=== PATIENT | male | born 1975 | race Caucasian/White ===

== ENCOUNTER 2020-09-02 16:05 | Inpatient (IN) | payer BC, OTHER ==
[~2020-09-02 16:05] MED LIST: Iopamidol 370 76% 100 ML VIAL ONE
--- NOTE | 2020-09-02 16:35 | RAD ---
Chest AP view INDICATION: History of Covid positive diagnosis and shortness of breath COMPARISON: May 26, 2015 FINDINGS: Lungs: There are interstitial and airspace opacities affecting both lungs within the mid to lower as pects suspicious for pneumonia. Cardiac silhouette: The cardiomediastinal silhouette appears within normal limits. Pulmonary vasculature: Normal Pleural spaces: No pleural effusion or pneumothorax is demonstrated. Upper abdomen: No abnormality seen. Osseous structures: No acute osseous abnormality. Additional findings: None. IMPRESSION: Bilateral pneumonia.
[2020-09-02 16:37] LABS: #Eosinphils 0.1 thou/uL (0.0-0.7); #Lymphocytes 0.8 thou/uL (1.20-3.40); #Monocytes 0.2 thou/uL (0.11-0.59); #Neutrophils 6.1 thou/uL (1.40-6.50); %Basophils 0.3 % (0.0-1.0); %Monocytes 2.9 % (0.0-10.0); %Neutrophils 84.8 % (42.0-75.0); Mean Corpuscular HGB CONC 33.4 g/dL (32.0-36.0); Mean Corpuscular Hemoglobin 31.2 pg (27.0-31.0); Mean Corpuscular Volume 93.5 fL (78.0-98.0); Mean Platelet Volume 7.7 fL (7.4-10.4); Platelet Count 230 thou/uL (130-400); RBC Distribution Width 12.3 % (11.5-14.5); Red Blood Cell (RBC) Count 4.48 mill/uL (4.70-6.10); White Blood Cell (WBC) Count 7.2 thou/uL (4.8-10.8)
[2020-09-02 17:05] LABS: Carbon Dioxide 22 mmol/L (22-29)
[2020-09-02 17:25] LABS: ALT (SGPT) 24 U/L (8-55); AST (SGOT) 91 U/L (5-34); Alkaline Phosphatase 214 U/L (40-110); Anion Gap 16 mmol/L (10-20); BUN (Urea Nitrogen) Less than 20 mg/dL (8.9-20.6); Calc. Creatinine Clearance 0 mL/min (70-130); Globulin 4.7 g/dL (2.4-3.5); Glucose 250 mg/dL (70-105)
[2020-09-02 17:29] LABS: Albumin 3.2 g/dL (3.5-5.0)
[2020-09-02 17:30] LABS: Chloride 98 mmol/L (98-107); Potassium 5.9 mmol/L (3.5-5.1); Sodium 132 mmol/L (136-145)
[2020-09-02 17:31] LABS: Calcium 8.3 mg/dL (7.8-10.44)
[2020-09-02 17:32] LABS: Protein, Total 7.5 g/dL (6.0-8.3)
[2020-09-02 17:34] LABS: Bilirubin, Total 0.3 mg/dL (0.2-1.2)
[2020-09-02] MEDS ORDERED: cefTRIAXone\\ROCEPHIN 1 GM VIAL ONE (18:04)
--- NOTE | 2020-09-02 19:20 | CT ---
CT angiogram chest: 09/02/2020 COMPARISON: None HISTORY: Shortness of breath, fever, cough, Covid positive patient TECHNIQUE: Axial CT imaging at 2.5 mm intervals from the thoracic inlet through the upper abdomen wit h IV contrast using CT angiogram protocol. Coronal and sagittal 3-D reformatted imaging obtained. FINDINGS: The imaged upper abdomen appears grossly unremarkable. No pleural, pericardial, or mediasti nal fluid. No axillary lymphadenopathy. Subcarinal lymphadenopathy noted measuring 1.6 cm short axis dimension. Mildly enlarged lymph nodes are seen within the right paratracheal region and the AP window. No pulmonary arterial filling defect is evident to suggest the presence of acute pulmonary arterial e mbolism. No pneumothorax is seen. There is extensive multifocal interstitial and ground glass opacity bilaterally with involvement of t he right upper lobe, right middle lobe, right lower lobe, left lower lobe, and left upper lobe diffusely. Review of the osseous structures demonstrates no acute findings. IMPRESSION: Extensive bilateral multi lobar interstitial and alveolar/ground glass opacity consistent with Covid pneumonia. No evidence for pulmonary arterial embolism.
[2020-09-02] MEDS ORDERED: Azithromycin 500 MG in Sodium Chloride 0.9% 250 ML 250 ML IVPB ONE (19:30)
[2020-09-02] MEDS ORDERED: Acetaminophen 325 MG TAB PO PRN (20:01)
[2020-09-02] MEDS ORDERED: HumaLOG 300 UNITS/3 ML VIAL SC PRN (20:01)
[2020-09-02] MEDS ORDERED: Dextrose 5% in Water 1,000 ML IV PRN (20:01)
[2020-09-02] MEDS ORDERED: Dextrose 50% Abboject 50 ML SYRINGE SLOW IVP PRN (20:01)
[2020-09-02 20:55] LABS: Potassium 5.1 mmol/L (3.5-5.1)
[2020-09-03] MEDS ORDERED: Ondansetron ODT 4 MG TAB SL PRN (01:30)
[2020-09-03] MEDS ORDERED: Acetaminophen 325 MG TAB PO PRN (01:30)
[2020-09-03] MEDS ORDERED: Ondansetron PF 4 MG/2 ML Vial IVP PRN (01:30)
--- NOTE | 2020-09-03 02:15 | HP ---
REASON FOR ADMISSION: Shortness of breath. HISTORY OF PRESENT ILLNESS: This is a 45-year-old male patient, who is presenting with shortness of breath. He was diagnosed with COVID-19 approximately eight days ago. He presents today for increasing shortness of breath. Today, he was taking shower and he started coughing and he felt that he is going to faint. He did not lose consciousness, but this episode prompted him to come to the ER. Currently, he appears to be comfortable, but up on ambulation, his pulse ox dropped to 90%. PAST MEDICAL HISTORY: 1. Diabetes type 2. 2. High blood pressure. 3. Ruptured disk in neck and back. 4. Asthma. 5. High blood pressure. SOCIAL HISTORY: He does not smoke. He drinks alcohol occasionally. PAST SURGICAL HISTORY: Right shoulder, right knee surgery, left eye surgery. PAST PSYCHIATRIC HISTORY: Bipolar disorder. FAMILY HISTORY: Positive for diabetes. REVIEW OF SYSTEMS: All systems reviewed except the above mentioned, found to be negative. PHYSICAL EXAMINATION: GENERAL: Awake, alert, oriented, does not appear in distress. VITAL SIGNS: His blood pressure is 117/86, heart rate of 81, saturating 95% on 2 L nasal cannula. HEENT: Head is nontraumatic, normocephalic. Pupils are equal and reactive. Extraocular movements are intact. Nonicteric sclerae. Well injected conjunctivae. Oral mucosa normal. Nasal mucosa normal. NECK: Supple. No adenopathy. No murmur. Thyroid is not palpable. Trachea is midline. No supraclavicular adenopathy. HEART: S1 and S2, regular. No murmur. No gallops. No friction rubs. No displacement on PMI. LUNGS: Decreased air entry. Inspiratory crackles bilaterally. ABDOMEN: Bowel sounds are positive. Nontender abdomen. No hepatosplenomegaly. EXTREMITIES: No lower extremity edema. No cyanosis. NEURO: Cranial nerves 2 through 12 within normal limits. Normal motor function. Normal sensory function and reflexes. LABORATORY DATA: Blood work shows a WBC of 7.2, hemoglobin of 14, platelets of 230, neutrophil count 84.8%. Sodium 132, potassium 5.9, bicarb of 22, creatinine of 0.9, glucose of 250, albumin 3.2. Chest x-ray shows bilateral pneumonia. CT of the chest shows extensive bilateral multilobar interstitial and alveolar/ground-glass opacity consistent with COVID pneumonia. No evidence of PE. ASSESSMENT AND PLAN: This is a 45-year-old male patient, who is presenting with increased shortness of breath and hypoxia on ambulation. He was diagnosed with COVID-19 approximately eight days ago. The patient will be admitted to the COVID-19 unit and he is allergic to corticosteroids, but he did receive Solu-Medrol in the ER. I will double check with him if he can tolerate the Solu-Medrol. We can maintain him on a daily dose of that. He did receive Rocephin and azithromycin. Since mainly most likely he does have a COVID pneumonia, would cover him with azithromycin to be on a safe side. For his diabetes, he will be on insulin sliding scale. For deep vein thrombosis prophylaxis, he will be on Lovenox. I am awaiting for his med rec to be done so I could reconcile it. Job ID: [id number]
[2020-09-03 02:53] VITALS: BMI 28.7
[2020-09-03] MEDS ORDERED: traMADol HCl 50 MG TAB PO PRN (04:27)
[2020-09-03] MEDS: HumaLOG 300 UNITS/3 ML VIAL SC PRN ×3 (06:38→20:33)
[2020-09-03 06:49] LABS: Anion Gap 19 mmol/L (10-20); BUN (Urea Nitrogen) 18 mg/dL (8.9-20.6); Calc. Creatinine Clearance 115 mL/min (70-130); Calcium 8.7 mg/dL (7.8-10.44); Carbon Dioxide 22 mmol/L (22-29); Chloride 98 mmol/L (98-107); Glucose 455 mg/dL (70-105); Potassium 4.3 mmol/L (3.5-5.1); Sodium 135 mmol/L (136-145)
[2020-09-03] MEDS: metFORMIN 500 MG TAB PO SCH (09:01)
[2020-09-03] MEDS: Venlafaxine HCl XR 150 MG CAP PO SCH (09:02)
[2020-09-03] MEDS: Pregabalin 75 MG CAP PO SCH (09:02)
[2020-09-03] MEDS: Enoxaparin Sodium 40 MG/0.4 ML SYRINGE SC SCH (09:03)
[2020-09-03] MEDS ORDERED: Albuterol Sulfate 2.5 mg/3 ml Neb NEB PRN (10:23)
[2020-09-03] MEDS ORDERED: guaiFENesin 100 MG/5 ML UDCUP PO PRN (10:24)
[2020-09-03] MEDS ORDERED: Pharmacy to Dose REMDESIVIR IVPB PRN (10:26)
[2020-09-03] MEDS: Dexamethasone 6 MG in Sodium Chloride 0.9% 50 ML IVPB SCH (11:21)
[2020-09-03] MEDS ORDERED: REMDESIVIR (EUA) 200 MG in Sodium Chloride 0.9% 250 ML 210 ML IV SCH (13:00)
[2020-09-03] MEDS ORDERED: PROVENTIL INHALER 6.7 G (200 INHALATIONS) INH PRN ×2 (15:17→15:20)
--- NOTE | 2020-09-03 16:38 | PDOC.HOSPP ---
- Subjective Encounter Date: 09/03/20 Encounter Time: 12:30 Subjective: Patient up in bed denies any complaints. - Objective Vital Signs & Weight: Vital Signs (12 hours) Temp Pulse Resp BP Pulse Ox 09/03/20 12:11 97.9 F 60 20 109/76 95 09/03/20 08:00 97.8 F 57 L 18 111/74 95 Weight Weight 212 lb Result Diagrams: 09/02/20 16:27 09/03/20 06:14 Additional Labs: Accuchecks 09/03/20 09/03/20 09/03/20 12:11 05:37 02:04 POC Glucose 292 H 433 H 311 H Hospitalist ROS - Review of Systems Cardiovascular: denies: chest pain, palpitations, orthopnea, paroxysmal noc. dyspnea, edema, light headedness, other Gastrointestinal: denies: nausea, vomiting, abdominal pain, diarrhea, constipation, melena, hematochezia, other Genitourinary: denies: dysuria, frequency, incontinence, hematuria, retention, other - Medication Medications: Active Medications Generic Name Dose Route Start Last Admin Trade Name Freq PRN Reason Stop Dose Admin Enoxaparin Sodium 40 mg 09/03/20 09:00 09/03/20 09:03 Enoxaparin Sodium 40 Mg/0.4 Ml Syringe SC 40 mg 0900 KAYCEE Administration Dexamethasone 6 mg/ Sodium 50.6 mls @ 100 mls/hr 09/03/20 09:00 09/03/20 11:21 Chloride IVPB 50.6 mls DAILY KAYCEE Administration Insulin Human Lispro 0 units 09/03/20 06:45 09/03/20 06:38 Humalog 300 Units/3 Ml Vial SC 13 unit .AGGRESSIVE SLIDING PRN Administration AGGRESSIVE SLIDING SCALE Protocol Metformin HCl 2,000 mg 09/03/20 08:00 09/03/20 09:01 Metformin 500 Mg Tab PO 2,000 mg QAM-WM KAYCEE Administration Pregabalin 75 mg 09/03/20 09:00 09/03/20 09:02 Pregabalin 75 Mg Cap PO 75 mg DAILY KAYCEE Administration Venlafaxine HCl 300 mg 09/03/20 09:00 09/03/20 09:02 Venlafaxine Hcl Xr 150 Mg Cap PO 300 mg DAILY KAYCEE Administration - Exam Neck: negative: supple, symmetric, no JVD, no thyromegaly, no lymphadenopathy, no carotid bruit, JVD Heart: negative: RRR, no murmur, no gallops, no rubs, normal peripheral pulses, irregular, diminshed peripheral pulses, murmur present, II/IV, III/IV Respiratory: negative: CTAB, no wheezes, no rales, no ronchi, normal chest expansion, no tachypnea, normal percussion, rales, rhonchi, tachypneic, wheezes Gastrointestinal: negative: soft, non-tender, non-distended, normal bowel sounds, no palpable masses, no hepatomegaly, no splenomegaly, no bruit, no guarding, no rigidity, tender to palpation, distended, diminished bowl sounds, voluntary guarding Hosp A/P (1) Acute respiratory failure with hypoxia Code(s): J96.01 - ACUTE RESPIRATORY FAILURE WITH HYPOXIA Status: Acute (2) COVID-19 Code(s): U07.1 - COVID-19 Status: Acute (3) Diabetes Code(s): E11.9 - TYPE 2 DIABETES MELLITUS WITHOUT COMPLICATIONS Status: Acute (4) Obesity Code(s): E66.9 - OBESITY, UNSPECIFIED Status: Acute - Plan We will start patient on remdesivir. Continue steroids. Patient on albuterol. Patient on DVT prophylaxis
[2020-09-03] MEDS: Azithromycin 250 MG TAB PO SCH (20:16)
[2020-09-03] MEDS: Benzonatate 100 MG CAP PO PRN (20:16)
[2020-09-04] MEDS: HumaLOG 300 UNITS/3 ML VIAL SC PRN ×4 (06:06→20:23)
[2020-09-04 07:13] LABS: ALT (SGPT) 20 U/L (8-55); AST (SGOT) 20 U/L (5-34); Albumin 3.2 g/dL (3.5-5.0); Alkaline Phosphatase 57 U/L (40-110); Bilirubin, Direct 0.1 mg/dL (0.1-0.3); Bilirubin, Total 0.3 mg/dL (0.2-1.2); Protein, Total 5.9 g/dL (6.0-8.3)
[2020-09-04] MEDS: Pregabalin 75 MG CAP PO SCH (08:37)
[2020-09-04] MEDS: metFORMIN 500 MG TAB PO SCH (08:37)
[2020-09-04] MEDS: Venlafaxine HCl XR 150 MG CAP PO SCH (08:37)
[2020-09-04] MEDS: Cholecalciferol (Vitamin D3) 400 UNITS TAB PO SCH (08:38)
[2020-09-04] MEDS: Enoxaparin Sodium 40 MG/0.4 ML SYRINGE SC SCH (08:38)
[2020-09-04] MEDS: Dexamethasone 6 MG in Sodium Chloride 0.9% 50 ML IVPB SCH (08:40)
--- NOTE | 2020-09-04 12:20 | PDOC.HOSPP ---
- Subjective Encounter Date: 09/04/20 Encounter Time: 10:30 Subjective: pt up in bed no complains - Objective Vital Signs & Weight: Vital Signs (12 hours) Temp Pulse Resp BP Pulse Ox 09/04/20 08:00 97.4 F L 55 L 18 96/56 L 94 L Weight Weight 212 lb I&O: 09/03/20 09/04/20 09/05/20 06:59 06:59 06:59 Intake Total 450 Balance 450 Result Diagrams: 09/02/20 16:27 09/03/20 06:14 Additional Labs: Accuchecks 09/04/20 09/04/20 09/03/20 11:48 05:47 20:31 POC Glucose 269 H 230 H 253 H 09/03/20 09/03/20 16:41 12:11 POC Glucose 424 H 292 H Hospitalist ROS - Review of Systems Cardiovascular: denies: chest pain, palpitations, orthopnea, paroxysmal noc. dyspnea, edema, light headedness, other Gastrointestinal: denies: nausea, vomiting, abdominal pain, diarrhea, constipation, melena, hematochezia, other Genitourinary: denies: dysuria, frequency, incontinence, hematuria, retention, other - Medication Medications: Active Medications Generic Name Dose Route Start Last Admin Trade Name Freq PRN Reason Stop Dose Admin Acetaminophen 650 mg 09/02/20 20:01 09/03/20 23:11 Acetaminophen 325 Mg Tab PO 650 mg Q4H PRN Administration Headache/Fever/Mild Pain (1-3) Azithromycin 500 mg 09/03/20 20:00 09/03/20 20:16 Azithromycin 250 Mg Tab PO 500 mg 2000 KAYCEE Administration Benzonatate 100 mg 09/03/20 10:23 09/03/20 20:16 Benzonatate 100 Mg Cap PO 100 mg TIDPRN PRN Administration Cough Cholecalciferol 400 units 09/04/20 09:00 09/04/20 08:38 Cholecalciferol (Vitamin D3) 400 Units Tab PO 400 units DAILY KAYCEE Administration Enoxaparin Sodium 40 mg 09/03/20 09:00 09/04/20 08:38 Enoxaparin Sodium 40 Mg/0.4 Ml Syringe SC 40 mg 0900 KAYCEE Administration Dexamethasone 6 mg/ Sodium 50.6 mls @ 100 mls/hr 09/03/20 09:00 09/04/20 08:40 Chloride IVPB 50.6 mls DAILY KAYCEE Administration Insulin Human Lispro 0 units 09/03/20 06:45 09/04/20 06:06 Humalog 300 Units/3 Ml Vial SC 6 unit .AGGRESSIVE SLIDING PRN Administration AGGRESSIVE SLIDING SCALE Protocol Metformin HCl 2,000 mg 09/03/20 08:00 09/04/20 08:37 Metformin 500 Mg Tab PO 2,000 mg QAM-WM KAYCEE Administration Pregabalin 75 mg 09/03/20 09:00 09/04/20 08:37 Pregabalin 75 Mg Cap PO 75 mg DAILY KAYCEE Administration Tramadol HCl 50 mg 09/03/20 04:27 09/03/20 23:12 Tramadol Hcl 50 Mg Tab PO 50 mg Q6H PRN Administration Pain Venlafaxine HCl 300 mg 09/03/20 09:00 09/04/20 08:37 Venlafaxine Hcl Xr 150 Mg Cap PO 300 mg DAILY KAYCEE Administration - Exam Heart: negative: RRR, no murmur, no gallops, no rubs, normal peripheral pulses, irregular, diminshed peripheral pulses, murmur present, II/IV, III/IV Respiratory: negative: CTAB, no wheezes, no rales, no ronchi, normal chest expansion, no tachypnea, normal percussion, rales, rhonchi, tachypneic, wheezes Gastrointestinal: negative: soft, non-tender, non-distended, normal bowel sounds, no palpable masses, no hepatomegaly, no splenomegaly, no bruit, no guarding, no rigidity, tender to palpation, distended, diminished bowl sounds, voluntary guarding Hosp A/P (1) Acute respiratory failure with hypoxia Code(s): J96.01 - ACUTE RESPIRATORY FAILURE WITH HYPOXIA Status: Acute (2) COVID-19 Code(s): U07.1 - COVID-19 Status: Acute (3) Diabetes Code(s): E11.9 - TYPE 2 DIABETES MELLITUS WITHOUT COMPLICATIONS Status: Acute (4) Obesity Code(s): E66.9 - OBESITY, UNSPECIFIED Status: Acute - Plan We will start patient on remdesivir. Continue steroids. Patient on albuterol. Patient on DVT prophylaxis 09/04 pt on remdesivir day 2. will continue steroids/dvt ppx and albuterol.
[2020-09-04] MEDS ORDERED: Insulin Glargine 8 UNITS in Pre-Filled Syringe SC SCH (12:30)
--- NOTE | 2020-09-04 14:50 | EKG ---
Test Reason : Blood Pressure : / mmHG Vent. Rate : 088 BPM Atrial Rate : 088 BPM P-R Int : 112 ms QRS Dur : 098 ms QT Int : 346 ms P-R-T Axes : 001 -23 -33 degrees QTc Int : 418 ms Normal sinus rhythm Normal ECG Confirmed by JAYLIN MANJARREZ M.D. ([id number]), writer editor LAY CARDENAS ([id number]) on 09/04/2020 2:50:20 PM Referred By: Confirmed By:JAYLIN MANJARREZ M.D.
[2020-09-04] MEDS: REMDESIVIR (EUA) 100 MG in Sodium Chloride 0.9% 250 ML 230 ML IV SCH (15:23)
[2020-09-04] MEDS: Benzonatate 100 MG CAP PO PRN (20:23)
[2020-09-04] MEDS: Azithromycin 250 MG TAB PO SCH (20:23)
[2020-09-05] MEDS: HumaLOG 300 UNITS/3 ML VIAL SC PRN ×2 (05:39→20:17)
[2020-09-05 07:31] LABS: ALT (SGPT) 19 U/L (8-55); AST (SGOT) 14 U/L (5-34); Albumin 3.1 g/dL (3.5-5.0); Alkaline Phosphatase 54 U/L (40-110); Bilirubin, Direct 0.1 mg/dL (0.1-0.3); Bilirubin, Total 0.3 mg/dL (0.2-1.2); Protein, Total 5.8 g/dL (6.0-8.3)
[2020-09-05] MEDS: Dexamethasone 6 MG in Sodium Chloride 0.9% 50 ML IVPB SCH (08:02)
[2020-09-05] MEDS: Enoxaparin Sodium 40 MG/0.4 ML SYRINGE SC SCH (08:03)
[2020-09-05] MEDS: Pregabalin 75 MG CAP PO SCH (08:04)
[2020-09-05] MEDS: Venlafaxine HCl XR 150 MG CAP PO SCH (08:05)
[2020-09-05] MEDS: Insulin Glargine 8 UNITS in Pre-Filled Syringe SC SCH (08:05)
[2020-09-05] MEDS: metFORMIN 500 MG TAB PO SCH (08:05)
[2020-09-05] MEDS: Cholecalciferol (Vitamin D3) 400 UNITS TAB PO SCH (08:05)
[2020-09-05] MEDS ORDERED: HumaLOG 300 UNITS/3 ML VIAL SC SCH (10:00)
[2020-09-05] MEDS: REMDESIVIR (EUA) 100 MG in Sodium Chloride 0.9% 250 ML 230 ML IV SCH (12:34)
[2020-09-05] MEDS: HumaLOG 300 UNITS/3 ML VIAL SC SCH ×2 (12:34→17:04)
--- NOTE | 2020-09-05 15:36 | PDOC.HOSPP ---
- Subjective Encounter Date: 09/05/20 Encounter Time: 09:45 Subjective: pt up in bed no complains - Objective Vital Signs & Weight: Vital Signs (12 hours) Temp Pulse Resp BP Pulse Ox 09/05/20 08:15 98.2 F 58 L 18 114/77 95 09/05/20 08:00 95 Weight Weight 212 lb I&O: 09/04/20 09/05/20 09/06/20 06:59 06:59 06:59 Intake Total 450 450 Balance 450 450 Result Diagrams: 09/02/20 16:27 09/03/20 06:14 Additional Labs: Accuchecks 09/05/20 09/05/20 09/04/20 11:37 05:25 20:14 POC Glucose 275 H 264 H 245 H 09/04/20 16:04 POC Glucose 265 H Hospitalist ROS - Review of Systems Respiratory: denies: cough, dry, shortness of breath, hemoptysis, SOB with excertion, pleuritic pain, sputum, wheezing, other Cardiovascular: denies: chest pain, palpitations, orthopnea, paroxysmal noc. dyspnea, edema, light headedness, other Gastrointestinal: denies: nausea, vomiting, abdominal pain, diarrhea, constipation, melena, hematochezia, other - Medication Medications: Active Medications Generic Name Dose Route Start Last Admin Trade Name Freq PRN Reason Stop Dose Admin Acetaminophen 650 mg 09/02/20 20:01 09/03/20 23:11 Acetaminophen 325 Mg Tab PO 650 mg Q4H PRN Administration Headache/Fever/Mild Pain (1-3) Azithromycin 500 mg 09/03/20 20:00 09/04/20 20:23 Azithromycin 250 Mg Tab PO 500 mg 2000 KAYCEE Administration Benzonatate 100 mg 09/03/20 10:23 09/04/20 20:23 Benzonatate 100 Mg Cap PO 100 mg TIDPRN PRN Administration Cough Cholecalciferol 400 units 09/04/20 09:00 09/05/20 08:05 Cholecalciferol (Vitamin D3) 400 Units Tab PO 400 units DAILY KAYCEE Administration Enoxaparin Sodium 40 mg 09/03/20 09:00 09/05/20 08:03 Enoxaparin Sodium 40 Mg/0.4 Ml Syringe SC 40 mg 0900 KAYCEE Administration Dexamethasone 6 mg/ Sodium 50.6 mls @ 100 mls/hr 09/03/20 09:00 09/05/20 08:02 Chloride IVPB 50.6 mls DAILY KAYCEE Administration Remdesivir 100 mg/ Sodium 250 mls @ 250 mls/hr 09/04/20 13:00 09/05/20 12:34 Chloride IV 09/07/20 13:59 250 mls 1300 KAYCEE Administration Insulin Glargine 8 units/ 0.08 mls @ 0 mls/hr 09/05/20 09:00 09/05/20 08:05 Miscellaneous Medication SC 0.08 mls QAM KAYCEE Administration Insulin Human Lispro 0 units 09/03/20 06:45 09/05/20 05:39 Humalog 300 Units/3 Ml Vial SC 9 unit .AGGRESSIVE SLIDING PRN Administration AGGRESSIVE SLIDING SCALE Protocol Insulin Human Lispro 8 units 09/05/20 12:00 09/05/20 12:34 Humalog 300 Units/3 Ml Vial SC 8 unit TID-WM KAYCEE Administration Metformin HCl 2,000 mg 09/03/20 08:00 09/05/20 08:05 Metformin 500 Mg Tab PO 2,000 mg QAM-WM KAYCEE Administration Pregabalin 75 mg 09/03/20 09:00 09/05/20 08:04 Pregabalin 75 Mg Cap PO 75 mg DAILY KAYCEE Administration Tramadol HCl 50 mg 09/03/20 04:27 09/03/20 23:12 Tramadol Hcl 50 Mg Tab PO 50 mg Q6H PRN Administration Pain Venlafaxine HCl 300 mg 09/03/20 09:00 09/05/20 08:05 Venlafaxine Hcl Xr 150 Mg Cap PO 300 mg DAILY KAYCEE Administration - Exam Heart: negative: RRR, no murmur, no gallops, no rubs, normal peripheral pulses, irregular, diminshed peripheral pulses, murmur present, II/IV, III/IV Respiratory: negative: CTAB, no wheezes, no rales, no ronchi, normal chest expansion, no tachypnea, normal percussion, rales, rhonchi, tachypneic, wheezes Gastrointestinal: negative: soft, non-tender, non-distended, normal bowel sounds, no palpable masses, no hepatomegaly, no splenomegaly, no bruit, no guarding, no rigidity, tender to palpation, distended, diminished bowl sounds, voluntary guarding Extremities: 1+ LE edema Hosp A/P (1) Acute respiratory failure with hypoxia Code(s): J96.01 - ACUTE RESPIRATORY FAILURE WITH HYPOXIA Status: Acute (2) COVID-19 Code(s): U07.1 - COVID-19 Status: Acute (3) Diabetes Code(s): E11.9 - TYPE 2 DIABETES MELLITUS WITHOUT COMPLICATIONS Status: Acute (4) Obesity Code(s): E66.9 - OBESITY, UNSPECIFIED Status: Acute - Plan We will start patient on remdesivir. Continue steroids. Patient on albuterol. Patient on DVT prophylaxis 09/04 pt on remdesivir day 2. will continue steroids/dvt ppx and albuterol. 09/05 pt on day 3 of remdesivir. pt on dvt ppx/steroids and albuterol. pt's insulin increased. He is on a diabetic diet. will check a hbg alc.
[2020-09-05] MEDS: Benzonatate 100 MG CAP PO PRN (20:09)
[2020-09-05] MEDS: Azithromycin 250 MG TAB PO SCH (20:09)
[2020-09-06 05:59] LABS: Hemoglobin A1c 10.7 % (4.0-6.0)
[2020-09-06 06:17] LABS: ALT (SGPT) 20 U/L (8-55); AST (SGOT) 18 U/L (5-34); Albumin 3.1 g/dL (3.5-5.0); Alkaline Phosphatase 52 U/L (40-110); Bilirubin, Direct 0.1 mg/dL (0.1-0.3); Bilirubin, Total 0.3 mg/dL (0.2-1.2); Protein, Total 5.8 g/dL (6.0-8.3)
[2020-09-06] MEDS: Enoxaparin Sodium 40 MG/0.4 ML SYRINGE SC SCH (09:18)
[2020-09-06] MEDS: metFORMIN 500 MG TAB PO SCH (09:18)
[2020-09-06] MEDS: Cholecalciferol (Vitamin D3) 400 UNITS TAB PO SCH (09:19)
[2020-09-06] MEDS: Pregabalin 75 MG CAP PO SCH (09:19)
[2020-09-06] MEDS: Venlafaxine HCl XR 150 MG CAP PO SCH (09:19)
[2020-09-06] MEDS: Insulin Glargine 8 UNITS in Pre-Filled Syringe SC SCH (09:21)
[2020-09-06] MEDS: HumaLOG 300 UNITS/3 ML VIAL SC SCH ×3 (09:21→17:06)
[2020-09-06] MEDS: Dexamethasone 6 MG in Sodium Chloride 0.9% 50 ML IVPB SCH (09:44)
[2020-09-06] MEDS: HumaLOG 300 UNITS/3 ML VIAL SC PRN ×2 (13:02→17:06)
[2020-09-06] MEDS: REMDESIVIR (EUA) 100 MG in Sodium Chloride 0.9% 250 ML 230 ML IV SCH (13:20)
--- NOTE | 2020-09-06 15:07 | PDOC.HOSPP ---
- Subjective Encounter Date: 09/06/20 Encounter Time: 12:00 Subjective: Pt seen for followup re: respiratory failure. Feels well. - Objective Vital Signs & Weight: Vital Signs (12 hours) Temp Pulse Resp BP Pulse Ox 09/06/20 12:15 98.2 F 60 18 129/78 97 09/06/20 09:00 96 09/06/20 08:04 98.2 F 94 18 117/79 96 09/06/20 05:15 63 99 Weight Weight 212 lb I&O: 09/05/20 09/06/20 09/07/20 06:59 06:59 06:59 Intake Total 450 600 Balance 450 600 Result Diagrams: 09/02/20 16:27 09/03/20 06:14 Additional Labs: Accuchecks 09/06/20 09/06/20 09/05/20 11:33 05:10 20:14 POC Glucose 267 H 179 H 278 H 09/05/20 16:13 POC Glucose 211 H Labs and MAR reviewed by nc Hospitalist ROS - Review of Systems Respiratory: reports: cough, sputum. denies: dry, shortness of breath, he moptysis, SOB with excertion, pleuritic pain, wheezing Cardiovascular: denies: chest pain, palpitations, orthopnea, paroxysmal noc. dyspnea, edema, light headedness Gastrointestinal: denies: nausea, vomiting, abdominal pain, diarrhea, constipation, melena, hematochezia - Medication Medications: Active Medications Generic Name Dose Route Start Last Admin Trade Name Freq PRN Reason Stop Dose Admin Acetaminophen 650 mg 09/02/20 20:01 09/03/20 23:11 Acetaminophen 325 Mg Tab PO 650 mg Q4H PRN Administration Headache/Fever/Mild Pain (1-3) Azithromycin 500 mg 09/03/20 20:00 09/05/20 20:09 Azithromycin 250 Mg Tab PO 500 mg 2000 KAYCEE Administration Benzonatate 100 mg 09/03/20 10:23 09/05/20 20:09 Benzonatate 100 Mg Cap PO 100 mg TIDPRN PRN Administration Cough Cholecalciferol 400 units 09/04/20 09:00 09/06/20 09:19 Cholecalciferol (Vitamin D3) 400 Units Tab PO 400 units DAILY KAYCEE Administration Enoxaparin Sodium 40 mg 09/03/20 09:00 09/06/20 09:18 Enoxaparin Sodium 40 Mg/0.4 Ml Syringe SC 40 mg 0900 KAYCEE Administration Dexamethasone 6 mg/ Sodium 50.6 mls @ 100 mls/hr 09/03/20 09:00 09/06/20 09:44 Chloride IVPB 50.6 mls DAILY KAYCEE Administration Remdesivir 100 mg/ Sodium 250 mls @ 250 mls/hr 09/04/20 13:00 09/06/20 13:20 Chloride IV 09/07/20 13:59 250 mls 1300 KAYCEE Administration Insulin Glargine 8 units/ 0.08 mls @ 0 mls/hr 09/05/20 09:00 09/06/20 09:21 Miscellaneous Medication SC 0.08 mls QAM KAYCEE Administration Insulin Human Lispro 0 units 09/03/20 06:45 09/06/20 13:02 Humalog 300 Units/3 Ml Vial SC 9 unit .AGGRESSIVE SLIDING PRN Administration AGGRESSIVE SLIDING SCALE Protocol Insulin Human Lispro 8 units 09/05/20 12:00 09/06/20 13:02 Humalog 300 Units/3 Ml Vial SC 8 unit TID-WM KAYCEE Administration Metformin HCl 2,000 mg 09/03/20 08:00 09/06/20 09:18 Metformin 500 Mg Tab PO 2,000 mg QAM-WM KAYCEE Administration Pregabalin 75 mg 09/03/20 09:00 09/06/20 09:19 Pregabalin 75 Mg Cap PO 75 mg DAILY KAYCEE Administration Tramadol HCl 50 mg 09/03/20 04:27 09/03/20 23:12 Tramadol Hcl 50 Mg Tab PO 50 mg Q6H PRN Administration Pain Venlafaxine HCl 300 mg 09/03/20 09:00 09/06/20 09:19 Venlafaxine Hcl Xr 150 Mg Cap PO 300 mg DAILY KAYCEE Administration - Exam General Appearance: awake alert Eye: anicteric sclera ENT: moist mucosa Neck: supple Heart: RRR Respiratory: CTAB Gastrointestinal: soft, non-tender Skin: no rashes Psychiatric: normal affect, normal behavior Hosp A/P - Plan -Assessment (1) Acute respiratory failure with hypoxia Code(s): J96.01 - ACUTE RESPIRATORY FAILURE WITH HYPOXIA Status: Acute (2) COVID-19 Code(s): U07.1 - COVID-19 Status: Acute (3) Diabetes Code(s): E11.9 - TYPE 2 DIABETES MELLITUS WITHOUT COMPLICATIONS Status: Acute (4) Obesity Code(s): E66.9 - OBESITY, UNSPECIFIED Status: Acute - Plan Patient's last dose of remdesivir will be tomorrow. Continue dexamethasone, vitamin C and zinc. Continue insulin sliding scale. Likely discharge home tomorrow after remdesivir dose. Patient does not appear to need home oxygen at this point.
[2020-09-06] MEDS: Azithromycin 250 MG TAB PO SCH (20:19)
[2020-09-07 07:37] LABS: ALT (SGPT) 29 U/L (8-55); AST (SGOT) 28 U/L (5-34); Albumin 3.5 g/dL (3.5-5.0); Alkaline Phosphatase 61 U/L (40-110); Bilirubin, Direct 0.1 mg/dL (0.1-0.3); Bilirubin, Total 0.4 mg/dL (0.2-1.2); Protein, Total 6.7 g/dL (6.0-8.3)
[2020-09-07 08:04] VITALS: TEMP 98
[2020-09-07] MEDS: metFORMIN 500 MG TAB PO SCH (08:30)
[2020-09-07] MEDS: Cholecalciferol (Vitamin D3) 400 UNITS TAB PO SCH (08:30)
[2020-09-07] MEDS: Insulin Glargine 8 UNITS in Pre-Filled Syringe SC SCH (08:30)
[2020-09-07] MEDS: Pregabalin 75 MG CAP PO SCH (08:30)
[2020-09-07] MEDS: Venlafaxine HCl XR 150 MG CAP PO SCH (08:30)
[2020-09-07] MEDS: Enoxaparin Sodium 40 MG/0.4 ML SYRINGE SC SCH (08:31)
[2020-09-07] MEDS: Dexamethasone 6 MG in Sodium Chloride 0.9% 50 ML IVPB SCH (08:31)
[2020-09-07] MEDS: HumaLOG 300 UNITS/3 ML VIAL SC SCH ×2 (09:16→12:12)
[2020-09-07 11:07] VITALS: BP 113/76
[2020-09-07] MEDS: HumaLOG 300 UNITS/3 ML VIAL SC PRN (12:12)
[2020-09-07] MEDS: REMDESIVIR (EUA) 100 MG in Sodium Chloride 0.9% 250 ML 230 ML IV SCH (12:14)
--- NOTE | 2020-09-07 13:22 | PDOC.DS.DS ---
Provider - Provider Date of Admission: 09/02/20 18:30 Date of Discharge: 09/07/20 Admitting Provider: Thiago Chen MD Primary Care Physician: Unknown Course - Hospital Course Hospital Course: Discharge diagnoses: 1. Acute hypoxic respiratory failure 2. COVID-19 pneumonia Hospital course: Patient is a pleasant 45-year-old gentleman who was admitted to the hospital on September 02, 2020 for acute hypoxic respiratory failure secondary to COVID-19 pneumonia. He was treated with remdesivir. He also received dexamethasone and vitamin C. He improved clinically and is being discharged home in a stable condition. Many thanks for allowing me to participate in your patient's care. Please feel free to contact me with any questions or concerns. Discharge destination: Home Total amount of time spent coordinating this discharge: 20 minutes Resuscitation Status: 09/02/20 20:01 Resuscitation Status Routine Resuscitation Status: FULL: Full Resuscitation - Labs Lab Results: 09/02/20 16:27 09/03/20 06:14 Abnormal Lab Results - Last 48 hrs 09/06/20 05:36: Serum Total Protein 5.8 L, Albumin 3.1 L 09/06/20 05:36: Hemoglobin A1c 10.7 H 09/07/20 05:50: C-Reactive Protein 1.87 H - Physical Exam Vitals: Vital Signs (12 hours) Temp Pulse Resp BP Pulse Ox 09/07/20 11:06 98.0 F 67 18 113/76 98 09/07/20 08:04 98.0 F 58 L 18 116/78 97 Weight Weight 212 lb Physical Exam: The patient was seen and examined on the day of discharge. Patient denies chest pain or shortness of breath. Vital signs are stable. S1 and S2 are heard. Lungs are clear to auscultation bilaterally. Plan - Discharge Medications Prescriptions: Cefdinir 300 mg PO Q12HR #10 capsule Dexamethasone 6 mg PO DAILY #5 tablet Aspirin [Ecotrin Low Strength] 81 mg PO DAILY #7 tab Ascorbic Acid [Vitamin C] 1,000 mg PO DAILY #5 tablet Zinc Sulfate [Zinc-220] 220 mg PO DAILY #5 capsule Home Medications: Medication Instructions Recorded Confirmed Type ALButerol Sulfate [Ventolin Neb] 3 ml NEB Q6HR PRN 09/03/20 09/03/20 History Pregabalin [Lyrica] 75 mg PO DAILY 09/03/20 09/03/20 History Venlafaxine HCl [Venlafaxine HCl 2 tab PO DAILY 09/03/20 09/03/20 History ER] metFORMIN [Glucophage] 4 tab PO DAILY 09/03/20 09/03/20 History traMADol HCl [Tramadol HCl] 50 mg PO PRN PRN 09/03/20 09/03/20 History Ascorbic Acid [Vitamin C] 1,000 mg PO DAILY #5 tablet 09/07/20 Rx Aspirin [Ecotrin Low Strength] 81 mg PO DAILY #7 tab 09/07/20 Rx Cefdinir 300 mg PO Q12HR #10 capsule 09/07/20 Rx Dexamethasone 6 mg PO DAILY #5 tablet 09/07/20 Rx Zinc Sulfate [Zinc-220] 220 mg PO DAILY #5 capsule 09/07/20 Rx Allergies: No Known Allergies Allergy (Verified 09/03/20 05:55) - Discharge Instructions Activity:: Orthopedic Limitations - Follow up Plan Referrals: Melodie Rain PA-C [[facility]] - 3 Days Disposition: HOME
== END 2020-09-07 14:33 | disposition home or self-care (01) | DRG 177 ==
LOC: ERS 16:05 → T4-A 18:30
PROVIDERS: ADMIT Internal Medicine; ATTEND Internal Medicine
PROC: 8E0ZXY6 Isolation (ICD-10-PCS; principal; 2020-09-03)
PROC: XW033E5 Introduction of Remdesivir Anti-infective into Peripheral Vein, Percutaneous Approach, New Technology Group 5 (ICD-10-PCS; 2020-09-03)
DX: U07.1 COVID-19 (principal); J12.89 Other viral pneumonia; J96.01 Acute respiratory failure with hypoxia; E11.9 Type 2 diabetes mellitus without complications; I10 Essential (primary) hypertension; J45.909 Unspecified asthma, uncomplicated; F31.9 Bipolar disorder, unspecified; F17.290 Nicotine dependence, other tobacco product, uncomplicated; E66.9 Obesity, unspecified; Z91.19 Patient's noncompliance with other medical treatment and regimen; Z68.28 Body mass index [BMI] 28.0-28.9, adult; Z79.899 Other long term (current) drug therapy; Z79.84 Long term (current) use of oral hypoglycemic drugs; Z83.3 Family history of diabetes mellitus
CPT/HCPCS: 36415; 36416; 71045; 71275; 80048; 80053; 80076; 82728; 83036; 84484; 85025; 86140; 93005; 94760; 96365; 96366; 96375; J0456; J0696; J1100; J1650; J1815; J7050; Q9967

== ENCOUNTER 2020-10-18 08:22 | Outpatient (CLI) | payer BC ==
--- NOTE | 2020-10-18 09:03 | ULT ---
ULTRASOUND ABDOMEN LIMITED: (RIGHT UPPER QUADRANT) DATE: 10/18/2020 HISTORY: Elevated liver function tests and right upper quadrant abdominal pain in 45-year-old male FINDINGS: Gallbladder: Normal wall thickness. No evidence of pericholecystic fluid, gallstones, or sludge. Liver: Diffusely increased echogenicity, consistent with fatty liver. Common duct caliber:4 mm. Right kidney: No hydronephrosis. Pancreas: Nonspecific sonographic appearance. IMPRESSION: 1) Hepatic steatosis. 2) otherwise negative.
== END 2020-10-18 08:23 | disposition home or self-care (01) ==
LOC: BICULT 08:22
PROVIDERS: ATTEND Physician Assistant
DX: R10.11 Right upper quadrant pain (principal); K76.0 Fatty (change of) liver, not elsewhere classified
CPT/HCPCS: 76705

== ENCOUNTER 2024-09-11 12:33 | Outpatient (CLI) | payer BC | END 2024-09-11 12:34 | disposition home or self-care (01) | LOC: ULT 12:33 | PROVIDERS: ATTEND Physician Assistant | DX: R59.0 Localized enlarged lymph nodes (principal) | CPT/HCPCS: 76536 ==